=== PATIENT | female | born 1990 | race Caucasian/White ===

== ENCOUNTER → 2018-08-18 11:45 | Outpatient (CLI) | payer OTHER, SELFPAY ==
[2018-08-18 12:49] LABS: Basophils % 0.4 % (0.1-2.0); Eosinophils # 0.1 K/mm3 (0.0-0.4); Hematocrit 37.8 % (37.0-47.0); Hemoglobin 12.7 g/dL (12.2-16.2); Lymphocytes # 1.7 K/mm3 (0.7-4.5); Lymphocytes % 21.9 % (10-50); Mean Corpuscular HGB Conc 33.7 g/dL (31.8-35.4); Mean Corpuscular Hemoglobin 30.8 pg (27.0-31.2); Mean Corpuscular Volume 91.4 fl (81-99); Monocytes # 0.2 K/mm3 (0.1-1.0); Monocytes % 2.3 % (1.7-9.3); Neutrophils # 5.8 K/mm3 (1.8-7.8); Neutrophils % 74.4 % (37.0-80.0); Platelet Count 192 K/mm3 (142-424); Red Blood Count 4.13 M/mm3 (4.20-5.40); Red Cell Distribution Width 13.2 % (11.5-17.5); White Blood Count 7.8 K/mm3 (4.8-10.8)
[2018-08-19 14:17] LABS: HIV Screen 4th Generation wRfx Non Reactive (Non Reactive); Hepatitis B Surface Antigen Negative (Negative); Hepatitis C Antibody >11.0 s/co ratio (0.0-0.9); Rubella Antibodies, IgG 2.75 index (Immune >0.99)
[2018-08-21 16:12] LABS: Rapid Plasma Reagin Ab Titer Non Reactive (NonRea<1:1)
[2018-08-22 14:00] LABS: Buprenorphine, Urine Positive (Cutoff=10)
== END ==
LOC: LAB.DROPOF 08-20 09:11 → LAB 08-23 10:02
PROVIDERS: Visit Provider Nurse Practitioner Obstetrics & Gynecology
DX: Z34.90 Encounter for supervision of normal pregnancy, unspecified, unspecified trimester (principal); B19.20 Unspecified viral hepatitis C without hepatic coma
CPT/HCPCS: 80307; 85025; 86592; 86703; 86762; 86850; 87340; 87380; 87522; G0432

== ENCOUNTER → 2018-08-20 13:04 | Outpatient (CLI) | payer OTHER, SELFPAY ==
--- NOTE | 2018-08-20 13:07 | US_ITS ---
US OB /maternal detail: INDICATION: ITS.REASON: US OB Complete ORDERING PHYSICIAN: Dario Kahn MD PATIENT AGE: 28 years TECHNIQUE: ultrasound transabdominal scanning. COMPARISON: No previous relevant studies. FINDINGS: Single viable intrauterine gestation. Cephalic position. Placenta: Anterior placenta grade 1. There is average amount fluid. The cervix appears satisfactory. Closed and measuring 5 cm in length. Complete survey performed and was unremarkable on the submitted images as in PACS. No discrete anomalies identified on survey imaging by technologist. Active fetus. Three-vessel cord with satisfactory umbilical cord insertion. 4- chamber heart noted. Survey of brain & ventricles unremarkable. Face and neck survey unremarkable. Diaphragm and chest views unremarkable. Abdomen: Both kidneys noted and unremarkable. Stomach noted and satisfactory. Spine: Survey of the spine satisfactory with no anomalies identified nor imaged. Both arms and legs noted. Amniotic Fluid: Adequate. Maternal adnexa: No significant findings. Measurements: Average ultrasound age 19w0d. Gestational Age 22w3d. Estimated due date by ultrasound age 0501/14/2019. Estimated weight 274 grams. BPD = 18w5d OFD = 20w0d HC = 18w5d AC = 19w5d FL = 18w6d Growth Percentile= 2% Heart Rate = 138 Cerebellum = 19w3d Humerus = 20w0d HC/AC is 1.12 (1.06-1.25). CI is 73%. FL/BPD is 68%. FL/AC is 20% (20-24%). IMPRESSION: There is a single fetus which is in cephalic presentation. Average ultrasound age is 19 weeks 0 days. All parameters correlate and no obvious anomalies are evident.. The fetus is active. Placenta is anterior. Percentile growth is 2% based on the established due date given of 12/21/2018. There are no previous exams available for comparison. Are the patient's dates reliable?
== END ==
PROVIDERS: Visit Provider Nurse Practitioner Obstetrics & Gynecology
DX: Z36.0 Encounter for antenatal screening for chromosomal anomalies (principal)
CPT/HCPCS: 76811

== ENCOUNTER → 2018-10-26 08:04 | Outpatient (CLI) | payer OTHER, SELFPAY ==
[2018-10-26 08:50] LABS: Glucose,Fasting 83 mg/dL (60-105)
[2018-10-26 10:17] LABS: Glucose 1 Hour 111 mg/dL (74-106)
== END ==
PROVIDERS: Visit Provider Nurse Practitioner Obstetrics & Gynecology
DX: Z34.90 Encounter for supervision of normal pregnancy, unspecified, unspecified trimester (principal)
CPT/HCPCS: 36415; 82951

== ENCOUNTER → 2018-12-21 17:21 | Outpatient (CLI) | payer OTHER, SELFPAY | LOC: LAB 17:21 → LAB.DROPOF 12-22 11:00 | PROVIDERS: Visit Provider Nurse Practitioner Obstetrics & Gynecology | DX: Z34.90 Encounter for supervision of normal pregnancy, unspecified, unspecified trimester (principal) | CPT/HCPCS: 86403 ==

== ENCOUNTER → 2018-12-28 15:38 | Outpatient (CLI) | payer OTHER, SELFPAY ==
--- NOTE | 2018-12-28 15:41 | US_ITS ---
US OB biophysical profile: Indication: ITS.REASON: US OB BPP Growth- LGA ORDERING PHYSICIAN: Dario Kahn MD PATIENT AGE: 28 years FINDINGS: The following parameters are obtained: Average ultrasound age is 35w6d. Estimated due date by ultrasound is 01/26/2019. Estimated weight is 2824gm. This is 21% BPD: 35w5d OFD: 35w5d HC: 35w2d AC: 36w4d FL: 35w5d heart rate: 130 bpm. HC/AC: 0.96 (0.92-1.205) Cephalic index: 80% (70-86%) FL/BPD: 79% (71-87%) FL/AC: 21% (20-24%) Amniotic fluid index: 15 cm Qualitative AFV: 2 breathing movements: 2 Gross body movements: 2 Tone: 2 Biophysical profile score: 8/8 No obvious anomalies evident. Placenta: Anterior grade 2 Cervix: Appears closed and measures 4 cm IMPRESSION: There is a single live fetus which is in cephalic presentation with an average ultrasound age of 35 weeks 6 days. Estimated weight is 2824 g which is 21st percentile. Biophysical profile is 8/8 with normal amniotic fluid volume of 15 cm. Placenta is anterior and grade 2
== END ==
PROVIDERS: PCP Nurse Practitioner Family; Visit Provider Nurse Practitioner Obstetrics & Gynecology
DX: Z34.90 Encounter for supervision of normal pregnancy, unspecified, unspecified trimester (principal); O36.60X0 Maternal care for excessive fetal growth, unspecified trimester, not applicable or unspecified
CPT/HCPCS: 76819

== ENCOUNTER → 2018-12-29 17:56 | Outpatient (CLI) | payer OTHER, SELFPAY | PROVIDERS: Visit Provider Nurse Practitioner Obstetrics & Gynecology | DX: O23.40 Unspecified infection of urinary tract in pregnancy, unspecified trimester (principal) | CPT/HCPCS: 87086 ==

== ENCOUNTER 2019-01-11 05:13 | Inpatient (IN) ==
[2019-01-11 06:04] LABS: Basophils % 0.4 % (0.1-2.0); Eosinophils % 0.3 % (0.1-12.0); Hematocrit 39.9 % (37.0-47.0); Hemoglobin 13.6 g/dL (12.2-16.2); Lymphocytes # 2.7 K/mm3 (0.7-4.5); Lymphocytes % 24.9 % (10-50); Mean Corpuscular HGB Conc 34.1 g/dL (31.8-35.4); Mean Corpuscular Hemoglobin 30.8 pg (27.0-31.2); Mean Corpuscular Volume 90.3 fl (81-99); Mean Platelet Volume 10.7 fl (7.4-10.4); Monocytes # 0.5 K/mm3 (0.1-1.0); Monocytes % 4.3 % (1.7-9.3); Neutrophils # 7.6 K/mm3 (1.8-7.8); Neutrophils % 70.1 % (37.0-80.0); Platelet Count 205 K/mm3 (142-424); Red Blood Count 4.41 M/mm3 (4.20-5.40); Red Cell Distribution Width 12.6 % (11.5-17.5); White Blood Count 10.9 K/mm3 (4.8-10.8)
[2019-01-11 06:18] LABS: Amphetamine/Metha Screen,Urine Negative ng/mL (<1000); Barbiturates Screen,Urine Negative ng/mL (<200); Benzodiazepines Screen,Urine Negative ng/mL (<200); Cannabinoid Screen,Urine Negative ng/mL (<50); Cocaine Screen,Urine Negative ng/mL (<300); Methadone Screen,Urine Negative ng/mL (<300); Opiate Screen,Urine Negative ng/mL (<300); Phencyclidine Screen,Urine Negative ng/mL (<25)
--- NOTE | 2019-01-11 08:50 | Progress Note ---
[facility] Anesthesia Checklist - Structural Data Admitted From: Inpatient (abor epidural) Planned Operative Procedure/s: labor epidural Consent for Planned Operative Procedure(s) Verified: Yes - Airway Assessment C-Spine Mobility Assessed: Yes TMJ Mobility Assessed: Yes Dentition: Good Dentition - Neurological Assessment Level of Consciousness: Awake, Alert, Appropriate - Anesthesia Plan Anesthesia Risk discussed: Yes Anesthesia Plan: Verified ASA Class: II Anesthesia Type: Epidural [facility] History I have reviewed the patient's past medical history: Yes Medical History: Reports:: Aneurysm, Depression, Hepatitis Denies:: Anxiety, Diabetes Mellitus Type 1, Hyperlipidemia, Hypertension, Seizures *Have you ever received a pneumonia vaccine?: No *Have you received a flu vaccine this season?: No Laterality Cases: Bilateral: Tonsillectomy Other Surgeries: Yes: Other. No: Amputation: No Fractures: No - *Social History Educational Level: Attended College Smoking Status: Current every day smoker Tobacco Type: cigarettes # Packs/Day (cigarettes): 1 #Yrs smoked (if former smoker): 9 Alcohol Intake: never Substance Use Type: former substance user, marijuana, crack/cocaine, heroin, amphetamines, opiates, painkillers, methamphetamine *Occupational Status:: unemployed Housing: house Household Members: family *Travel in the last 8 weeks: None - Psychiatric History Expresses thoughts of harming self/others: None Suicide Plan Description: No Plan Pschychiatric History:: Reports:: Depression Denies:: Anxiety Family Hx:: No significant family history Para: 1
--- NOTE | 2019-01-11 08:57 | Progress Note ---
Labor Note - Subjective: Date: 01/11/19 Time: 08:15 regular contraction - Objective: NST:: Reactive Contractions:: every 2-3 minutes Cervical Dilation:: 4 Effacement:: 75% Station: -2 Membranes: artificially ruptured Comment:: I ruptured her membranes and there was clear fluid. - Fetus: monitoring type:: Internal and External Comment:: I inserted an IUPC - Assessment: Labor progressing?: Yes Cephalopelvic disproportion?: No Patient Problems: All Active Problems (Updated 01/08/19 @ 10:21 by Dario Kahn MD) (Acute) - Plan: Anesthesia for epidural?: Yes Continue to labor down?: Yes Plan for ?: No Continue to monitor?: Yes Start pushing?: No
--- NOTE | 2019-01-11 11:03 | Progress Note ---
Labor Note - Subjective: Date: 01/11/19 Time: 11:02 regular contraction - Objective: NST:: Reactive Contractions:: every 2-3 minutes Cervical Dilation:: 6 Effacement:: 100% Station: -1 Membranes: artificially ruptured - Fetus: Monitoring?: Yes monitoring type:: Internal and External - Assessment: Labor progressing?: Yes Cephalopelvic disproportion?: No Patient Problems: All Active Problems (Updated 01/08/19 @ 10:21 by Dario Kahn MD) (Acute) - Plan: Anesthesia for epidural?: Yes Continue to labor down?: Yes Plan for ?: No Continue to monitor?: Yes Start pushing?: No Additional information:: She continues to progress. She is now 6 cm.
--- NOTE | 2019-01-11 12:20 | Progress Note ---
Labor Note - Subjective: Date: 01/11/19 Time: 12:20 regular contraction - Objective: Contractions:: every 2-3 minutes Cervical Dilation:: 9-10 Effacement:: 100% Station: -1 Membranes: artificially ruptured - Fetus: Monitoring?: Yes monitoring type:: Internal and External - Assessment: Labor progressing?: Yes Cephalopelvic disproportion?: No Patient Problems: All Active Problems (Updated 01/08/19 @ 10:21 by Dario Kahn MD) (Acute) - Plan: Anesthesia for epidural?: Yes Continue to labor down?: Yes Plan for ?: No Continue to monitor?: Yes Start pushing?: No Comment:: She is fully dilated but the head is still fairly high. We will let the babies had come down and then start pushing.
--- NOTE | 2019-01-11 13:43 | Progress Note ---
Labor Note - Subjective: Date: 01/11/19 Time: 13:43 urge to push, regular contraction - Objective: NST:: Reactive Contractions:: every 2-3 minutes Cervical Dilation:: 9-10 Effacement:: 100% Station: 0 Membranes: artificially ruptured - Fetus: Monitoring?: Yes monitoring type:: Internal and External - Assessment: Labor progressing?: Yes Cephalopelvic disproportion?: No Patient Problems: All Active Problems (Updated 01/08/19 @ 10:21 by Dario Kahn MD) (Acute) - Plan: Anesthesia for epidural?: Yes Continue to labor down?: Yes Plan for ?: No Continue to monitor?: Yes Start pushing?: Yes Comment:: We are having her start to push.
--- NOTE | 2019-01-11 14:27 | Procedure Note ---
- Delivery Note Delivery Date:: 01/11/19 Delivery Time:: 14:07 Anesthesia Type: Epidural Was labor medically induced?: Yes Induction method: per pitocin protocol Gestational age (weeks): 39 Infant delivered prior to 39 weeks?: No Infant Gender: Female at 1 minute: 2 at 5 minutes: 7 LAC or MLE?: LAC Delivery Procedure:: She is a 28-year-old 2 para 1 at 39+ weeks gestational age. She had extreme pedal edema and edema of her hands and as a result of that we offered her induction of labor at term. She was extremely uncomfortable. She was started on IV oxytocin had her membranes ruptured. She progressed under labor epidural to full dilation and delivered with the assistance of outlet forceps liveborn female child at 2:07 PM in the afternoon of January 11, 2019. She was not pushing effectively so I placed a vacuum on the head. I pulled gently twice in the head came down significantly. There were 2 pop offs and as a result of that I elected to just place forceps in the direct OP position with the head on the perineum. With one gentle pull I was able to easily deliver the head. There was a tight nuchal cord around the shoulder and neck. This was reduced. The rest the infant's body delivered atraumatically. We doubly clamped and cut the cord and the baby was handed off to nurses who assigned of 2 at 1 minute and 7 at 5 minutes. We bag and mask the baby for approximately 3 minutes. At all times there was good heart rate activity. Obtained cord blood as well as cord pH. The pH is currently pending. She then received IV oxytocin. Using gentle traction on the cord and countertraction the fundus I was able to easily deliver the placenta intact. It had a normal three- vessel cord. She had a second-degree perineal laceration that was repaired with 3-0 Vicryl Rapide with suture to the superficial tissues of the vagina and 2-0 Vicryl suture to the tissues of the perineum. The estimated blood loss was approximately 400 cc. She plans to bottlefeed. Her application support engineer is Dr. Joel. Laceration:: vaginal Placental Delivery Description: Spontaneous
[2019-01-11 23:54] VITALS: BP 132/70
[2019-01-12 06:35] LABS: Hematocrit 30.7 % (37.0-47.0); Hemoglobin 10.3 g/dL (12.2-16.2)
--- NOTE | 2019-01-13 07:54 | Progress Note ---
Internal Medicine - PN: Subj *Date: 01/12/19 *Time: 07:53 Interval history: She continues to do well. She is eating and drinking and ambulating. She is bottlefeeding. Her lochia is normal. Exam Vital signs and Labs for Last 24 Hours: Temp Pulse Resp BP Pulse Ox 98.5 F 74 18 132/70 98 01/11/19 19:34 01/11/19 19:34 01/11/19 19:34 01/11/19 19:34 01/11/19 19:34 I & O for Last 24 hours: Intake & Output 01/10/19 01/11/19 01/12/19 01/13/19 11:59 11:59 11:59 11:59 Weight 198 lb - Constitutional no acute distress Assessment and Plan (1) Normal delivery at term Current visit: Yes Status: Acute Category: Medical Code(s): O80 - Encounter for full-term uncomplicated delivery (2) complicated by subutex maintenance, antepartum Current visit: Yes Status: Acute Category: Medical Code(s): O99.320 - Drug use complicating , unspecified trimester; F11.20 - Opioid dependence, uncomplicated - Assessment and plan all Dx Assessment and Plan for all problems:: She is doing well. She will be discharged home on Friday the
--- NOTE | 2019-01-13 07:57 | Discharge Summary ---
General - General Admission date:: 01/11/19 Discharge date: 01/13/19 HPI HPI: She is a 28-year-old 2 now para 2 who is 39+ weeks gestational age. She had extreme swelling in her lower legs and feet. The swelling was so significant that she was not able to walk properly. As result of that we elected to induce her labor at term. She has been taking 8 mg of Subutex throughout the as well. Hospital Course Hospital Course: She was started on IV oxytocin had her membranes ruptured. She progressed to full dilation and delivered with the assistance of outlet forceps a liveborn female child at 2:07 PM on the afternoon of January 11, 2019. The baby weighed 7 pounds 12 ounces and was 19 inches long. She had of 2 at 1 minute and 7 at 5 minutes. She had a second-degree perineal laceration. She is done well and has remained afebrile throughout her hospitalization. She is eating and drinking and ambulating. She is bottlefeeding. She has a positive blood, she is rubella immune and was group B stopcock is negative. Her safety spec is Dr. Gamboa. She is discharged home to follow-up with me in approximately 2 weeks time. She will continue with her vitamins and iron. She was given the usual instructions with respect to limiting her activity, driving and sexual activity. Rhogam Administration: Not Indicated Objective Vital signs: Temp Pulse Resp BP Pulse Ox 98.5 F 74 18 132/70 98 01/11/19 19:34 01/11/19 19:34 01/11/19 19:34 01/11/19 19:34 01/11/19 19:34 no acute distress DS: Diagnosis - Discharge Diagnosis (1) Normal delivery at term Status: Acute (2) complicated by subutex maintenance, antepartum Status: Acute Discharge Plan - Patient Discharge Instructions ACTIVITY: No heavy lifting DIET: continue same diet - Follow up Plan Disposition: Home, Self-Custodial Medications: Home Medications Medication Instructions Recorded Confirmed Type buprenorphine HCl 8 mg sublingual 8 mg SUBLINGUAL DAILY 08/18/18 01/11/19 History tablet Amoxicillin [Amoxicillin 500mg 500 mg PO BID 01/11/19 01/11/19 History Cap] Ferrous Sulfate 325 mg PO DAILY 01/11/19 01/11/19 History Vit Calc,Iron,Folic [Kpn] 1 tab PO DAILY 01/11/19 01/11/19 History Nicotine [Nicoderm 21mg/24hr 21 mg TD DAILYP PRN #30 patch.td24 01/13/19 Rx patch] Prescriptions/Medication Reconciliation: New Nicotine [Nicoderm 21mg/24hr patch] 21 mg TD DAILYP PRN #30 patch.td24 PRN Reason: Smoking Cessation Continued buprenorphine HCl 8 mg sublingual tablet 8 mg SUBLINGUAL DAILY Ferrous Sulfate 325 mg PO DAILY Amoxicillin [Amoxicillin 500mg Cap] 500 mg PO BID Vit Calc,Iron,Folic [Kpn] 1 tab PO DAILY
== END 2019-01-13 11:40 | disposition home or self-care (01) | DRG 806 ==
LOC: OB 05:13
PROVIDERS: ADMIT Obstetrics & Gynecology; ATTEND Nurse Practitioner Obstetrics & Gynecology
CPT/HCPCS: 36415; 80305; 80307; 82800; 85014; 85018; 85025; 86850; C1758; J0571; J2405

== ENCOUNTER → 2023-03-28 14:57 | Outpatient (CLI) | payer OTHER, SELFPAY ==
[2023-03-28 16:56] LABS: HCG,Quantitative 119730 mIU/ml (0-5.42)
== END ==
PROVIDERS: Visit Provider Nurse Practitioner Obstetrics & Gynecology
DX: N92.6 Irregular menstruation, unspecified (principal); Z32.00 Encounter for pregnancy test, result unknown
CPT/HCPCS: 36415; 84144; 84702

== ENCOUNTER → 2023-04-24 15:53 | Outpatient (CLI) | payer OTHER, SELFPAY ==
[2023-04-24 16:31] LABS: Basophils % 0.2 % (0.1-2.0); Eosinophils # 0.1 K/mm3 (0.0-0.4); Eosinophils % 0.6 % (0.1-12.0); Hematocrit 39.4 % (37.0-47.0); Hemoglobin 13.1 g/dL (12.2-16.2); Lymphocytes # 1.9 K/mm3 (0.7-4.5); Lymphocytes % 21.2 % (10-50); Mean Corpuscular HGB Conc 33.1 g/dL (31.8-35.4); Mean Corpuscular Hemoglobin 30.5 pg (27.0-31.2); Mean Platelet Volume 9.2 fl (7.4-10.4); Monocytes # 0.3 K/mm3 (0.1-1.0); Monocytes % 3.2 % (1.7-9.3); Neutrophils # 6.5 K/mm3 (1.8-7.8); Neutrophils % 74.7 % (37.0-80.0); Platelet Count 200 K/mm3 (142-424); Red Blood Count 4.29 M/mm3 (4.20-5.40); White Blood Count 8.7 K/mm3 (4.8-10.8)
[2023-04-24 18:35] LABS: Barbiturates Screen,Urine Negative ng/ml (<200)
[2023-04-24 18:36] LABS: Amphetamine/Metha Screen,Urine Negative ng/ml (<1000)
[2023-04-24 19:21] LABS: Methadone Screen,Urine Negative ng/ml (<300); Opiate Screen,Urine Negative ng/ml (<300)
[2023-04-24 19:22] LABS: Phencyclidine Screen,Urine Negative ng/ml (<25)
[2023-04-24 20:51] LABS: Benzodiazepines Screen,Urine Negative ng/ml (<200)
[2023-04-24 20:52] LABS: Cannabinoid Screen,Urine Positive ng/ml (<50)
[2023-04-24 20:53] LABS: Cocaine Screen,Urine Negative ng/ml (<300)
[2023-04-26 10:44] LABS: Rubella Antibodies, IgG 3.06 index (Immune >0.99)
[2023-04-26 11:30] LABS: Rapid Plasma Reagin Ab Titer Non Reactive (NonRea<1:1)
[2023-04-27 11:31] LABS: HIV Screen 4th Generation wRfx Non Reactive; Hepatitis B Surface Antigen Negative; Hepatitis C Antibody Reactive
== END ==
PROVIDERS: Visit Provider Nurse Practitioner Obstetrics & Gynecology
DX: Z34.92 Encounter for supervision of normal pregnancy, unspecified, second trimester (principal); Z3A.16 16 weeks gestation of pregnancy
CPT/HCPCS: 36415; 80305; 85025; 86593; 86703; 86762; 86850; 87086; 87340; 87380; G0432

== ENCOUNTER → 2023-04-24 23:36 | Outpatient (CLI) | payer OTHER, SELFPAY | PROVIDERS: PCP Nurse Practitioner Obstetrics & Gynecology; Visit Provider Nurse Practitioner Obstetrics & Gynecology | DX: Z34.92 Encounter for supervision of normal pregnancy, unspecified, second trimester (principal); Z3A.16 16 weeks gestation of pregnancy ==

== ENCOUNTER → 2023-05-01 12:47 | Outpatient (CLI) | payer OTHER, SELFPAY ==
--- NOTE | 2023-05-01 12:59 | US_ITS ---
PROCEDURE: US OB >= 14 WEEKS FETUS CLINICAL INDICATION: for dates COMPARISON: No exams were available for comparison FINDINGS: Transvaginal sonographic images of the pelvis were obtained. From her last menstrual period she is 16weeks 6days. An intrauterine fetus is visualized correlating to gestational age of 16weeks 5days. Fetus in the cephalic presentation with a posterior placenta grade 1. The fluid is within normal limits. The cervix measures 3.6 cm. BPD: 17 weeks 0 days HC: 16 weeks 3 days AC: 17 weeks 1 day FL: 16 weeks 1 day heart tones are present with an FHR of 146bpm. Limited anatomical scan appears normal. Choroid plexus, profile, nasion, cerebellum, cisterna magna, thalamus, four-chamber heart, LVOT, RVOT, bladder, stomach, kidneys, three-vessel cord, cord insertion, nose, lips, legs, all appear normal. IMPRESSION: 1. Viable fetus in the cephalic presentation with a posterior placenta grade 1. 2. The size and dates correlate with her last menstrual period. She is 16 weeks 6 days. 3. Due date will continue to be October 10, 2023. Dictated by: Dario Kahn MD 05/01/2023 16:48 Dario Kahn MD in [facility] 05/01/2023 16:48
== END ==
PROVIDERS: Visit Provider Nurse Practitioner Obstetrics & Gynecology
DX: Z34.92 Encounter for supervision of normal pregnancy, unspecified, second trimester (principal); Z3A.17 17 weeks gestation of pregnancy
CPT/HCPCS: 76805

== ENCOUNTER → 2023-05-29 14:56 | Outpatient (CLI) | payer OTHER, SELFPAY ==
--- NOTE | 2023-05-29 15:02 | US_ITS ---
PROCEDURE: US OB /MATERNAL DETAIL CLINICAL INDICATION: 20 week anatomy scan COMPARISON: No exams were available for comparison FINDINGS: Transabdominal sonographic images of the pelvis were obtained. From her established due date she is 21 weeks 0 days. single viable intrauterine gestation. Breech position. Placenta: Anterolateralplacenta grade 1. There is average amount fluid. The cervix appears satisfactory. Closed and measuring 3.8 cm in length. Complete survey performed and was unremarkable on the submitted images as in PACS. No discrete anomalies identified on survey imaging by technologist. Active fetus. Three-vessel cord with satisfactory umbilical cord insertion. 4- chamber heart noted. Aortic arch, LVOT, RVOT Survey of brain & ventricles Unremarkable. Cerebellum, cisterna magna, thalamus and choroid plexus appear normal. Face and neck survey unremarkable. Profile, nasion, lips and nose appeared normal. Diaphragm and chest views unremarkable. Abdomen: Both kidneys noted and unremarkable. Stomach and bladder noted and satisfactory. Spine: Survey of the spine satisfactory with no anomalies identified nor imaged. Upper, thoracic and lower spine appear normal. Both arms and legs noted. Amniotic Fluid: Adequate. Measurements: Average ultrasound age 20weeks 3days. Estimated due date by ultrasound age 0210/13/2023. Estimated weight 345g BPD = 20weeks 5days HC = 20weeks 1day AC = 20weeks 4days FL = 20weeks 1day Growth Percentile= 14 Heart Rate = 143bpm Cerebellum = 20weeks 1day Humerus = 20weeks 4days HC/AC is 1.14 FL/BPD is 0.67 FL/AC is 0.21 IMPRESSION: 1. Viable fetus in the breech presentation with an anterolateral placenta grade 1. 2. Fluid is within normal limits. 3. Anatomical scan appears normal. 4. biometry is consistent with dates. Dictated by: Dario Kahn MD 05/31/2023 11:03 Dario Kahn MD in [facility] 05/31/2023 11:03
== END ==
PROVIDERS: PCP Nurse Practitioner; Visit Provider Nurse Practitioner Obstetrics & Gynecology
DX: Z3A.20 20 weeks gestation of pregnancy
CPT/HCPCS: 76811

== ENCOUNTER → 2023-07-16 10:09 | Outpatient (CLI) | payer OTHER, SELFPAY ==
[2023-07-16 11:14] LABS: Glucose,Fasting 85 mg/dl (74-100)
[2023-07-16 12:58] LABS: Glucose 1 Hour 95 mg/dL (74-100)
== END ==
PROVIDERS: PCP Nurse Practitioner; Visit Provider Nurse Practitioner Obstetrics & Gynecology
DX: Z34.92 Encounter for supervision of normal pregnancy, unspecified, second trimester (principal); Z3A.27 27 weeks gestation of pregnancy
CPT/HCPCS: 36415; 82951

== ENCOUNTER 2023-09-11 17:01 | Outpatient (CLI) | payer OTHER, SELFPAY | END 2023-09-11 23:59 | LOC: LAB.DROPOF 17:01 | PROVIDERS: PCP Nurse Practitioner Obstetrics & Gynecology; Visit Provider Nurse Practitioner Obstetrics & Gynecology | DX: Z34.93 Encounter for supervision of normal pregnancy, unspecified, third trimester (principal); Z3A.36 36 weeks gestation of pregnancy | CPT/HCPCS: 86403 ==

== ENCOUNTER 2023-09-18 14:49 | Outpatient (CLI) | payer OTHER, SELFPAY ==
--- NOTE | 2023-09-18 14:49 | US_ITS ---
PROCEDURE: US OB BIOPHYSICAL PROFILE CLINICAL INDICATION: lga COMPARISON: US OB /MATERNAL DETAIL from 05/29/2023 FINDINGS: Transabdominal sonographic images of the uterus were obtained. From her established due date she is 37weeks 1day. The following parameters are obtained: Viable Fetus in the cephalic presentation with a posterolateral placenta grade 2. Average ultrasound age is 36weeks 1day Estimated weight 2,767g, 6 lb 2 oz. Cervix measures 3.8 cm. Measurements: heart Rate = 135bpm BPD = 36weeks 3days HC = 37weeks 0 days AC = 36weeks 1day FL = 34weeks 4days HC/AC is 1.02 FL/BPD is 0.75 FL/AC is 0.21 23 percentile Amniotic fluid index: 12.52cm, MVP 4.51 cm. Qualitative AFV:2 Breathing movements: 2 Gross Body Movements: 2 Tone: 2 Biophysical profile score: 8 No obvious anomalies evident.Kidneys, bladder, four-chamber heart, three-vessel cord appear normal. IMPRESSION: 1. Viable fetus in the cephalic presentation with a posterolateral placenta grade 2. 2. The fluid is within normal limits with an amniotic fluid index of 12.52 cm, MVP 4.51 cm. 3. Biophysical profile / with good breathing movement and movement seen. 4. There has been good interval growth with the fetus currently 23 percentile. Dictated by: Dario Kahn MD 09/18/2023 16:54 Dario Kahn MD in [facility] 09/18/2023 16:54
== END 2023-09-18 23:59 ==
LOC: RAD 14:49
PROVIDERS: PCP Nurse Practitioner Obstetrics & Gynecology; Visit Provider Nurse Practitioner Obstetrics & Gynecology
DX: O36.63X0 Maternal care for excessive fetal growth, third trimester, not applicable or unspecified (principal); Z3A.37 37 weeks gestation of pregnancy
CPT/HCPCS: 76816; 76819

== ENCOUNTER 2023-09-30 17:51 | Inpatient (IN) | payer OTHER, SELFPAY ==
[2023-09-30 18:02] VITALS: BMI 27.3
[2023-09-30 19:01] VITALS: BP 120/63; PULSE 101; RESP 16; TEMP 36.8; O2SAT 100; BMI 27.3
[2023-09-30] MEDS: DINOPROSTONE 10MG VAG INSERT 10 MG VG (19:10)
[2023-09-30 19:25] LABS: Microscopic, Urine URINE MICROSCOPIC (MICROSCOPIC)
[2023-09-30 19:28] LABS: Basophils # 0.1 K/mm3 (0-0.2); Basophils % 0.5 % (0.1-2.0); Eosinophils % 0.3 % (0.1-12.0); Hematocrit 34.5 % (37.0-47.0); Hemoglobin 11.8 g/dL (12.2-16.2); Lymphocytes # 2.4 K/mm3 (0.7-4.5); Lymphocytes % 18.1 % (10-50); Mean Corpuscular HGB Conc 34.4 g/dL (31.8-35.4); Mean Corpuscular Hemoglobin 31.4 pg (27.0-31.2); Mean Corpuscular Volume 91.3 fl (81-99); Mean Platelet Volume 10.3 fl (7.4-10.4); Monocytes # 0.5 K/mm3 (0.1-1.0); Monocytes % 3.7 % (1.7-9.3); Neutrophils # 10.2 K/mm3 (1.8-7.8); Neutrophils % 77.4 % (37.0-80.0); Platelet Count 169 K/mm3 (142-424); Red Blood Count 3.78 M/mm3 (4.20-5.40); Red Cell Distribution Width 12.5 % (11.5-17.5); White Blood Count 13.1 K/mm3 (4.8-10.8)
[2023-09-30 19:30] LABS: Appearance,Urine SL CLOUDY (Clear); Bilirubin,Urine Negative (Negative); Blood, Urine TRACE-I (Negative); Color,Urine YELLOW (Yellow); Glucose,Urine (UA) Negative (Negative); Ketones,Urine TRACE (Negative); Leukocyte Esterase,Urine 2+ (Negative); Nitrate,Urine Negative (Negative); Protein,Urine Negative (Negative); Specific Gravity, Urine >= 1.030 (1.005-1.030); Urobilinogen,Urine 0.2 EU/dl (0.2)
[2023-09-30 19:42] LABS: Bacteria,Urine Trace /lpf; RBC,Urine Occasional #/hpf (0-3)
[2023-09-30 19:48] LABS: Amphetamine/Metha Screen,Urine Negative ng/ml (<1000)
[2023-09-30 19:49] LABS: Barbiturates Screen,Urine Negative ng/ml (<200); Benzodiazepines Screen,Urine Negative ng/ml (<200)
[2023-09-30 19:50] LABS: Cannabinoid Screen,Urine Negative ng/ml (<50)
[2023-09-30 19:51] LABS: Cocaine Screen,Urine Negative ng/ml (<300)
[2023-09-30 19:52] VITALS: BP 112/69; PULSE 88; RESP 16; TEMP 36.6; O2SAT 98
[2023-09-30 19:52] LABS: Opiate Screen,Urine Negative ng/ml (<300)
[2023-09-30 19:53] LABS: Phencyclidine Screen,Urine Negative ng/ml (<25)
[2023-09-30 19:55] LABS: Methadone Screen,Urine Negative ng/ml (<300)
[2023-10-01] MEDS: OXYTOCIN/RINGERS LACTATE 30 UNITS/500 ML BAG IV (05:18)
[2023-10-01] MEDS: DEXTROSE 5%-LACTATED RINGERS 1,000 ML 125 ML IV (05:19)
[2023-10-01 06:13] VITALS: BP 124/58; PULSE 68; RESP 20; TEMP 36.7; O2SAT 97
--- NOTE | 2023-10-01 07:31 | HMH.PHAINT1 ---
Pharmacy Intervention Comments: MEDICATION RECONCILIATION COMPLETED ON PATIENT USING EXTERNAL FILL HISTORY FROM PHARMACY. -CELIA HARVEY, ANNAD
--- NOTE | 2023-10-01 09:20 | P.HP_ITS ---
History of Present Illness *Admission Date: 09/30/23 *Reason for visit:: Term C, previous vaginal deliveries, Suboxone maintenance, hepatitis C pos *History of present illness: She is a 33-year-old 3 para 2 at 39 weeks gestational age. She had 2 previous vaginal deliveries and requested induction of labor at 39 weeks for convenience. A positive blood Rubella immune GBS negative Hepatitis C positive Suboxone maintenance [facility] Disclaimer: The information contained in this section may have been updated after the patient was seen, as this information can be updated by other users. Medical History History of drug abuse complicated by subutex maintenance, antepartum Surgical History History of tonsillectomy Family History No significant family history Social History Smoking Status: Current every day smoker tobacco type: cigarettes packs per day: 1 second hand exposure: Yes alcohol intake: never substance use type: former substance user, marijuana, crack/cocaine, heroin, amphetamines, opiates, painkillers and methamphetamine current occupational status: unemployed Travel in the last 8 weeks: None household members: family housing: house caffeine: No Review of Systems Review of Systems Review of systems:: pertinent systems reviewed and negative unless documented below Meds Home Medications and Allergies Home Medications Medication Instructions Recorded Confirmed Type buprenorphine 8 mg-naloxone 2 mg 1.5 tab sublingual DAILY 04/24/23 10/01/23 History sublingual tablet pediatric multivitamin no.7-folic 1 tab PO DAILY Supplement 05/29/23 10/01/23 History acid 100 mcg chewable tablet (Flintstones Multi-Vitamins Gummies) New Prescriptions to Start Prescriptions: Allergies Allergy/AdvReac Type Severity Reaction Status Date / Time NKDA - NO KNOWN DRUG Allergy Unknown Uncoded 09/25/23 15:24 ALLERGIES Exam Data for Last 24 hours Vital signs and Labs for Last 24 Hours: Temp Pulse Resp BP Pulse Ox O2 Del Method 98.0 F 68 20 124/58 L 97 Room Air 10/01/23 06:13 10/01/23 06:13 10/01/23 06:13 10/01/23 06:13 10/01/23 06:13 10/01/23 06:13 Laboratory Results - last 24 hr 09/30/23 19:00: WBC 13.1 H, RBC 3.78 L, Hgb 11.8 L, Hct 34.5 L, MCV 91.3, MCH 31.4 H, MCHC 34.4, RDW 12.5, Plt Count 169, MPV 10.3, Neut % (Auto) 77.4, Lymph % (Auto) 18.1, [place] % (Auto) 3.7, Eos % (Auto) 0.3, Baso % (Auto) 0.5, Neut # (Auto) 10.2 H, Lymph # (Auto) 2.4, [place] # (Auto) 0.5, Eos # (Auto) 0.0, Baso # (Auto) 0.1, Urine Color Yellow, Urine Appearance Sl cloudy, Urine pH 6.0, Ur Specific [place] >= 1.030, Urine Protein Negative, Urine Glucose (UA) Negative, Urine Ketones Trace, Urine Blood Trace-i, Urine Nitrate Negative, Urine Bilirubin Negative, Urine Urobilinogen 0.2, Ur Leukocyte Esterase 2+ A, Urine RBC Occasional, Urine WBC 5-10, Ur Squamous Epith Cells 3-5, Urine Bacteria Trace, Urine Opiates Screen Negative, Urine Methadone Screen Negative, Ur Barbituates Screen Negative, Ur Phencyclidine Scrn Negative, Ur Amphetamines Screen Negative, U Benzodiazepines Scrn Negative, Urine Cocaine Screen Negative, U Marijuana (THC) Screen Negative, Blood Type A Positive, Antibody Screen Negative I & O for Last 24 hours: Intake & Output 09/28/23 09/29/23 09/30/23 10/01/23 11:59 11:59 11:59 11:59 Weight 159 lb Constitutional Constitutional: no acute distress *Routine HEENT Exam Head: Present normocephalic Eye: Present EOMI and PERRL ENT: Present mucous membranes moist *Routine Neck Exam Neck: Present supple; Absent lymphadenopathy *Routine Respiratory Exam Respiratory: Present CTA bilaterally *Routine Cardiovascular Exam Cardiovascular: Present RRR *Routine Abdominal Exam Abdominal: Present soft and normoactive bowel sounds; Absent tenderness *Routine Rectal Exam Rectal:: deferred *Routine Genitalia Exam Genitalia:: deferred *Routine Extremities Exam Extremities: Absent cyanosis, clubbing or edema *Routine Skin Exam Skin: Present warm; Absent rash *Routine Neurological Exam Neurological: Present alert and oriented X3 Assessment and Plan *Assessment and plan (1) complicated by subutex maintenance, antepartum: Status: Acute Category: Medical Code(s): O99.320 - Drug use complicating , unspecified trimester; F11.20 - Opioid dependence, uncomplicated (2) Normal delivery at term: Status: Acute Category: Medical Code(s): O80 - Encounter for full-term uncomplicated delivery (3) Hepatitis C antibody positive in blood: Status: Acute Category: Medical Code(s): R76.8 - Other specified abnormal immunological findings in serum Plan The baby's head is still quite high so I did not rupture her membranes. She is having contractions every 2 minutes. She says they are like strong cramps. I did an ultrasound and confirmed that the baby was cephalic. She has had a previous 8 pound baby so we will expect a vaginal delivery.
--- NOTE | 2023-10-01 09:23 | EXP.LABOR.NO ---
Labor Note Subjective: Date: 10/01/23 Time: 08:30 regular contraction Objective: NST:: Reactive Contractions:: every 2-3 minutes Cervical Dilation:: 1 Effacement:: 50% Station: -3 Membranes: intact Fetus: Monitoring?: Yes monitoring type:: External Assessment: Labor progressing?: No Cephalopelvic disproportion?: No Plan: Anesthesia for epidural?: No Continue to labor down?: Yes Plan for ?: No Continue to monitor?: Yes Comment:: I examined her and the head is still quite high. Her cervix is quite long and the baby is not engaged in the pelvis. I elected not to try and rupture her membranes. Ultrasound confirmed that the baby was cephalic. We will expect a vaginal delivery and plan to examine her in a couple of hours and see if we can break the water at that time. Nonstress test is reactive and she is michi every 2 minutes.
[2023-10-01] MEDS: BUPRENORPHINE 8MG ODT 12 MG SL (09:51)
--- NOTE | 2023-10-01 11:30 | EXP.LABOR.NO ---
Labor Note Subjective: Date: 10/01/23 Time: 11:30 regular contraction Objective: NST:: Reactive Contractions:: every 2-3 minutes Cervical Dilation:: 2-3 Effacement:: 50% Station: -2 Membranes: artificially ruptured Comment:: I ruptured her membranes and there was clear fluid. Fetus: Monitoring?: Yes monitoring type:: Internal and External Comment:: I inserted an IUPC. Assessment: Labor progressing?: Yes Cephalopelvic disproportion?: No Plan: Anesthesia for epidural?: Yes Continue to labor down?: Yes Plan for ?: No Continue to monitor?: Yes Start pushing?: No Comment:: I have ruptured her membranes and there is clear fluid. An IUPC is in place. We will start oxytocin as necessary. We will expect a vaginal delivery.
--- NOTE | 2023-10-01 13:50 | EXP.LABOR.NO ---
Labor Note Subjective: Date: 10/01/23 Time: 13:50 regular contraction Objective: NST:: Reactive Contractions:: every 2-3 minutes Cervical Dilation:: 3-4 Effacement:: 50% Station: -2 Membranes: artificially ruptured Fetus: Monitoring?: Yes monitoring type:: Internal and External Assessment: Labor progressing?: Yes Cephalopelvic disproportion?: No Plan: Anesthesia for epidural?: No Continue to labor down?: Yes Plan for ?: No Continue to monitor?: Yes Start pushing?: No Comment:: Her cervix is changed and she is michi well. We have started IV oxytocin. We will expect a vaginal delivery.
--- NOTE | 2023-10-01 16:08 | EXP.ANES.CKL ---
[facility] Disclaimer: The information contained in this section may have been updated after the patient was seen, as this information can be updated by other users. Medical History History of drug abuse complicated by subutex maintenance, antepartum Surgical History History of tonsillectomy Family History No significant family history Social History Smoking Status: Current every day smoker tobacco type: cigarettes packs per day: 1 second hand exposure: Yes alcohol intake: never substance use type: former substance user, marijuana, crack/cocaine, heroin, amphetamines, opiates, painkillers and methamphetamine current occupational status: unemployed Travel in the last 8 weeks: None household members: family housing: house caffeine: No [facility] Anesthesia Checklist Patient Identification Patient Identification: Arm Band and Verbal (Name & ) Structural Data Admitted From: Inpatient ([id number]) Planned Operative Procedure/s: Labor Epidural Consent for Planned Operative Procedure(s) Verified: Yes Verified Documents: Surgical Consent and History and Physical NPO Status Verified Time NPO: 11:00 Chart Verification Results Verified: CBC and BMP Additional verifications Patient : Yes (39 wk IUP for induction of labor) Anesthesia Reactions: No Cardiovascular Assessment Heart Sounds: S1 & S2 Pulse Rhythm: Irregular Peripheral Edema: No Airway Assessment Mallampati Score:: Class II C-Spine Mobility Assessed: Yes (FROM) TMJ Mobility Assessed: Yes Dentition: Dentures-good fit (Upper dentures. Nothing loose per pt.) Neurological Assessment Level of Consciousness: Awake, Alert, Appropriate and Follows Commands Hx Seizures: No Numbness or tingling in extremities: No Anesthesia Plan Anesthesia Risk discussed: Yes Anesthesia Plan: Verified ASA Class: II Anesthesia Type: Epidural
--- NOTE | 2023-10-01 16:58 | EXP.LABOR.NO ---
Labor Note Subjective: Date: 10/01/23 Time: 16:58 regular contraction Objective: NST:: Reactive Contractions:: every 2-3 minutes Cervical Dilation:: 5 Effacement:: 75% Station: -3 Membranes: artificially ruptured Fetus: Monitoring?: Yes monitoring type:: Internal and External Assessment: Labor progressing?: Yes Cephalopelvic disproportion?: No Plan: Anesthesia for epidural?: Yes Continue to labor down?: Yes Plan for ?: No Continue to monitor?: Yes Start pushing?: No Comment:: Baby is still high. She is 5 cm 75% and the cervix is very soft. Nonstress test is reactive. We will continue with labor.
--- NOTE | 2023-10-01 19:04 | EXP.LABOR.NO ---
Labor Note Subjective: Date: 10/01/23 Time: 19:04 regular contraction Objective: NST:: Reactive Contractions:: every 2-3 minutes Cervical Dilation:: 9-10 Effacement:: 100% Station: +1 Membranes: artificially ruptured Fetus: Monitoring?: Yes monitoring type:: Internal and External Assessment: Labor progressing?: Yes Cephalopelvic disproportion?: No Plan: Anesthesia for epidural?: Yes Continue to labor down?: Yes Plan for ?: No Continue to monitor?: Yes Start pushing?: Yes Comment:: She is fully dilated. We will go ahead and start pushing. We will expect a vaginal delivery.
[2023-10-01] MEDS: OXYTOCIN/RINGERS LACTATE 30 UNITS/500 ML BAG 999 UNITS IV (19:20)
[2023-10-01] MEDS: METHYLERGONOVINE MALEATE 0.2MG/ML INJ 0.200000000000000011 MG IM (19:23)
--- NOTE | 2023-10-01 19:23 | EXP.DN ---
Delivery Note Delivery Date:: 10/01/23 Delivery Time:: 19:15 Anesthesia Type: Epidural Was labor medically induced?: Yes Induction method: per pitocin protocol Gestational age (weeks): 39 delivered prior to 39 weeks?: No Infant Gender: Female at 1 minute: 8 at 5 minutes: 9 Delivery Procedure:: She is a 33-year-old 3 para 2 at 39 weeks gestational age. She was uncomfortable and we elected to bring her in at term for induction of labor since it was her third baby. She was brought in and started on Cervidil but the caused her to have tachysystole so we remove the Cervidil and then started IV oxytocin in the morning of October 01, 2023. She had her membranes ruptured and under labor epidural progressed to full dilation. She delivered spontaneously a liveborn female child at 7:15 PM in the evening of October 01, 2023. On deliver the head the anterior shoulder then easily delivered followed by the rest the 's body atraumatically. The baby cried spontaneously and was vigorous so we allowed the cord to continue to pulsate for approximately 1 minute. The oropharynx and nasopharynx were bulb suction. The cord was then doubly clamped and cut and the infant was placed on the mother's abdomen for further care. The nurses assigned Apgars of 8 at 1 minute and 9 at 5 minutes. We then obtained cord blood. She received IV oxytocin and using gentle traction on the cord and countertraction on the fundus I was able to easily deliver the placenta intact. He had a normal three-vessel cord. There were no perineal or vaginal lacerations. We elected to give her 1 dose of Methergine since it is her third baby and she was in labor all day long. She has a positive blood, she is rubella immune and was group B streptococcus negative. She plans to bottlefeed. Estimated blood loss was approximate 200 cc. Placental Delivery Description: Spontaneous
[2023-10-01] MEDS: OXYTOCIN/RINGERS LACTATE 30 UNITS/500 ML BAG 40 UNITS IV (19:35)
[2023-10-02] MEDS: ACETAMINOPHEN 500MG TAB 1000 MG PO ×2 (04:10→15:41)
[2023-10-02 06:14] LABS: Hematocrit 32.6 % (37.0-47.0); Hemoglobin 10.9 g/dL (12.2-16.2)
--- NOTE | 2023-10-02 10:09 | EXP.ACUTE.PN ---
Subjective *Date: 10/02/23 *Time: 10:09 Interval history: She is 1 day . She is doing well. She is eating and drinking and ambulating. She is bottlefeeding. Her lochia is normal. Medical Exam Vital signs and Labs for Last 24 Hours: Laboratory Results - last 24 hr 10/02/23 05:27: Hgb 10.9 L, Hct 32.6 L I & O for Labs for Last 24 Hours: Intake & Output 09/29/23 09/30/23 10/01/23 10/02/23 11:59 11:59 11:59 11:59 Weight 159 lb Head: Present atraumatic Eyes: Present as per HPI ENT: Present normal exam Neck: Present normal inspection Respiratory: Present normal respiratory effort; Absent accessory muscle use Assessment and Plan *Assessment and plan (1) Hepatitis C antibody positive in blood: Status: Acute Category: Medical Code(s): R76.8 - Other specified abnormal immunological findings in serum (2) complicated by subutex maintenance, antepartum: Status: Acute Category: Medical Code(s): O99.320 - Drug use complicating , unspecified trimester; F11.20 - Opioid dependence, uncomplicated (3) Normal delivery at term: Status: Acute Category: Medical Code(s): O80 - Encounter for full-term uncomplicated delivery Plan She continues to do well. She will be discharged home tomorrow.
[2023-10-02] MEDS: IBUPROFEN 400 MG TABLET 800 MG PO (11:09)
[2023-10-02] MEDS: BUPRENORPHINE/NALOXONE 8MG/2MG ODT 1.5 EACH SL (11:09)
[2023-10-02] MEDS: PRENATAL MULTIVITAMIN W/IRON 1 EACH PO (16:46)
[2023-10-02 20:15] VITALS: BP 123/62; PULSE 64; RESP 17; TEMP 36.9; O2SAT 95
[2023-10-03 04:30] VITALS: BP 119/52; PULSE 68; RESP 17; TEMP 36.7; O2SAT 98
[2023-10-03] MEDS: IBUPROFEN 400 MG TABLET 800 MG PO (06:27)
[2023-10-03] MEDS: ACETAMINOPHEN 500MG TAB 1000 MG PO (06:27)
[2023-10-03 07:50] VITALS: BP 109/58; PULSE 62; RESP 17; TEMP 36.7; O2SAT 99
[2023-10-03] MEDS: BUPRENORPHINE/NALOXONE 8MG/2MG ODT 1.5 EACH SL (09:03)
[2023-10-03] MEDS: MEDROXYPROGESTERONE ACETATE 150MG/ML SYR 150 MG IM (12:07)
--- NOTE | 2023-10-03 14:33 | EXP.DC.SUM ---
General Admission date:: 09/30/23 Discharge date: 10/03/23 HPI HPI HPI: PPD # 2 s/p She is feeling well. Denies pain. Formula feeding. Light lochia. Voiding without difficulty and passing flatus. Tolerating regular diet. Denies fever/chills, chest pain and shortness of breath. No headaches, vision changes or swelling. No lightheadedness/dizziness. Ambulating well ad derik. Hospital Course Hospital Course Hospital Course: Ms Simone Lewis is a 33 yo at 39 weeks admitted to [facility] Labor and Delivery for elective induction of labor. complicated by Subutex maintenance. She was brought in and started on Cervidil but it caused her to have tachysystole so Cervidil was removed. IV oxytocin was started the morning of October 01, 2023. She had her membranes ruptured and under labor epidural progressed to full dilation. She had a normal spontaneous vaginal delivery on 10/01/23 at 1915. She delivered a liveborn female, Gurinder, weighing 6 lb 12 oz. APGARs 8 (1 min), 9 (5 min). EBL 200 mL. She did well . Denies pain. Formula feeding. Light lochia. Voiding without difficulty and passing flatus. Tolerating regular diet. Denies fever/chills, chest pain and shortness of breath. No headaches, vision changes or swelling. No lightheadedness/dizziness. Vital signs stable, afebrile. Heart regular rate and rhythm. Lungs clear to auscultation. Abdomen soft, nontender. No lower extremity edema. Ambulating well ad derik. She was discharged with ability to guest on PPD # 2. Exam Data for Last 24 hours Vital signs and Labs for Last 24 Hours: Temp Pulse Resp BP Pulse Ox O2 Del Method 98.0 F 62 17 109/58 L 99 Room Air 10/03/23 07:50 10/03/23 07:50 10/03/23 07:50 10/03/23 07:50 10/03/23 07:50 10/03/23 07:50 I & O for Last 24 hours: Intake & Output 09/30/23 10/01/23 10/02/23 10/03/23 23:59 23:59 23:59 23:59 Weight 159 lb Microbiology Reports for the Last 24 Hours: Microbiology 09/30/23 19:00 Urine,Clean Catch Urine Culture - Final Constitutional Constitutional: no acute distress and cooperative *Routine HEENT Exam Head: Present normocephalic and atraumatic Eye: Absent conjunctivae pink ENT: Present mucous membranes moist *Routine Neck Exam Neck: Present full ROM *Routine Respiratory Exam Respiratory: Present CTA bilaterally and normal respiratory effort *Routine Cardiovascular Exam Cardiovascular: Present RRR *Routine Abdominal Exam Abdominal: Present soft; Absent tenderness or distended Comments: Uterine fundus firm and below umbilicus *Routine Rectal Exam Patient deferred: visual exam *Routine Exam Patient deferred: external exam *Routine Extremities Exam Extremities: Present full ROM; Absent edema or calf tenderness *Routine Neurological Exam Neurological: Present alert, oriented X3 and moving all extremities Routine Psychiatric Exam Psychiatric: Present normal affect and cooperative DS: Diagnosis Discharge Diagnosis (1) Normal delivery at term: Status: Acute Code(s): O80 - Encounter for full-term uncomplicated delivery (2) Hepatitis C antibody positive in blood: Status: Acute Code(s): R76.8 - Other specified abnormal immunological findings in serum (3) complicated by subutex maintenance, antepartum: Status: Acute Code(s): O99.320 - Drug use complicating , unspecified trimester; F11.20 - Opioid dependence, uncomplicated Meds Home Medications and Allergies Home Medications Medication Instructions Recorded Confirmed Type buprenorphine 8 mg-naloxone 2 mg 1.5 tab sublingual DAILY 04/24/23 10/01/23 History sublingual tablet New Prescriptions to Start Prescriptions: Allergies Allergy/AdvReac Type Severity Reaction Status Date / Time No Known Drug Allergies Allergy Other Verified 10/02/23 07:32 Discharge Plan Disposition Patient Disposition: Home, Self-Care Condition: Good Discharge Order Discharge Orders: Discharge Order (Routine); Ordered 10/03/23 Ordered By: Leia Ball Follow up Plan Follow up with: Dario Kahn MD [Staff Physician] - 10/15/23 10:30 am Prescriptions/Medication Reconciliation: Continued buprenorphine-naloxone 8-2 mg tablet, sublingual 1.5 tab sublingual DAILY Patient Comments: Place 1&1/2 tablets under tongue once a day Discontinued Flintstones Multi-Vit Gummies 100 mcg tablet,chewable 1 tab PO DAILY Problem Reconciliation Problems Reviewed?: Yes Patient Discharge Instructions ACTIVITY: Limited activity DIET: continue same diet and regular diet Additional Instructions: Discharge: 1. Take 800 mg Ibuprofen every 8 hours as needed for pain. You can also take 500-1000 mg of Tylenol in between doses, every 6-8 hours. 2. Nothing in the vagina for 6 weeks - no intercourse, douching or tampons. No tub baths/hot tubs or swimming pools 3. Reasons to return to L&D or call On-Call doctor - fever (greater than 100.4) - heavy vaginal bleeding (soaking through 1 pad in less than 2 hours) - vaginal discharge (malodorous and/or purulent) - severe headaches not resolved by medication or rest and leg tenderness/edema 4. depression/blues - Normal to feel anxious/overwhelmed for first 2 weeks - Talk to your doctor if: severe anxiety, trouble bonding with baby, withdrawing from other family members, thoughts of harming yourself or others Leia Ball DO [facility] [phone] Providers Primary Care Provider: [facility] Admit Provider: Neha Shelby Attending Provider: Neha Shelby
[2023-10-06 16:14] LABS: Buprenorphine, Urine Positive (Cutoff=10)
--- NOTE | 2023-10-13 10:06 | SW/DCPLANNER ---
Infant cord screen only positive for Suboxone.
== END 2023-10-03 14:52 | disposition home or self-care (01) | DRG 806 ==
PROVIDERS: Nurse Practitioner Obstetrics & Gynecology; Admitting Provider Obstetrics & Gynecology; PCP Nurse Practitioner; Visit Provider Obstetrics & Gynecology
DX: O99.324 Drug use complicating childbirth (principal); F11.20 Opioid dependence, uncomplicated; Z37.0 Single live birth; O98.42 Viral hepatitis complicating childbirth; Z3A.39 39 weeks gestation of pregnancy; O99.334 Smoking (tobacco) complicating childbirth; F17.210 Nicotine dependence, cigarettes, uncomplicated; B19.20 Unspecified viral hepatitis C without hepatic coma
CPT/HCPCS: 59409; 59025; 80307; 81001; 85014; 85018; 85025; 86850; 87086; 96360; C1758; J0571; J0574; J1050